=== PATIENT | female | born 1960 | race Caucasian/White ===

== ENCOUNTER 2020-10-26 18:01 | Emergency (ER) | payer OTHER ==
[~2020-10-26] VITALS: Ht 162.6 cm; Wt 59.0 kg
[2020-10-26 18:04] VITALS: BP 134/85
[2020-10-26] MEDS ORDERED: KETOROLAC 30 MG/ML VIAL IM ONE (19:20)
[2020-10-26] MEDS ORDERED: IBUP-2213 PO (20:38)
[2020-10-26 20:51] VITALS: BP 128/84
== END 2020-10-26 20:50 | disposition home or self-care (01) ==
LOC: MED 18:01
DX: M62.830 Muscle spasm of back (principal); F03.90 Unspecified dementia, unspecified severity, without behavioral disturbance, psychotic disturbance, mood disturbance, and anxiety; I51.9 Heart disease, unspecified; Z86.73 Personal history of transient ischemic attack (TIA), and cerebral infarction without residual deficits
CPT/HCPCS: 72072; 96372; 99283; J1885